=== PATIENT | female | born 1970 ===

== ENCOUNTER 2018-04-09 10:41 | Emergency (ER) | payer OTHER ==
[2018-04-09 10:41] VITALS: BMI 30.8
[2018-04-09 11:13] VITALS: O2SAT 100
--- NOTE | 2018-04-09 11:18 | ED PDOC ---
HPI: General Adult Time Seen by Provider: 04/09/18 10:48 Chief Complaint (Nursing): Female Genitourinary Chief Complaint (Provider): RLQ pain History Per: Patient History/Exam Limitations: no limitations Onset/Duration Of Symptoms: Other (x 1 year) Current Symptoms Are (Timing): Intermittent Episodes Additional Complaint(s): 47-year-old female presents to emergency department with intermittent sharp right lower quadrant pain x 1 year associated with dysuria. No nausea/vomiting/diarrhea. No Fever. LMP 2 weeks ago PMD: [facility] Past Medical History Reviewed: Historical Data, Nursing Documentation, Vital Signs Vital Signs: Last Vital Signs Temp 98.6 F 04/09/18 17:48 Pulse 66 04/09/18 17:48 Resp 16 04/09/18 17:48 BP 137/77 04/09/18 17:48 Pulse Ox 100 04/09/18 17:48 - Medical History PMH: No Chronic Diseases - Surgical History Surgical History: No Surg Hx - Family History Family History: States: Unknown Family Hx - Allergies Allergies/Adverse Reactions: Allergies Allergy/AdvReac Type Severity Reaction Status Date / Time No Known Allergies Allergy Verified 04/09/18 11:07 Review of Systems ROS Statement: Except As Marked, All Systems Reviewed And Found Negative Constitutional: Negative for: Fever Gastrointestinal: Positive for: Abdominal Pain (RLQ). Negative for: Nausea, Vomiting, Diarrhea Genitourinary Female: Positive for: Dysuria Physical Exam - Reviewed Nursing Documentation Reviewed: Yes Vital Signs Reviewed: Yes - Physical Exam Gastrointestinal/Abdominal: Positive for: Soft, Tenderness (Minimally RLQ tenderness). Negative for: Guarding, Rebound Back: Positive for: Normal Inspection. Negative for: L CVA Tenderness, R CVA Tenderness - Laboratory Results Result Diagrams: 04/09/18 11:30 04/09/18 11:30 Urine POC: Negative - ECG O2 Sat by Pulse Oximetry: 100 (RA) Pulse Ox Interpretation: Normal Medical Decision Making Medical Decision Making: Time: 11:13 Plan: - CMP - ED Urine - CBC (with differential) - Pelvis/Transvaginal Ultrasound (-) Urine Patient to be transferred to Dr. Chan at 15:00, pending ultrasound. Scribe Attestation: Documented by Lewis Breaux, acting as a scribe for Shadi Francis MD Provider Scribe Attestation: All medical record entries made by the Scribe were at my direction and personally dictated by me. I have reviewed the chart and agree that the record accurately reflects my personal performance of the history, physical exam, medical decision making, and the department course for this patient. I have also personally directed, reviewed, and agree with the discharge instructions and disposition. Disposition - Clinical Impression Clinical Impression: Pelvic pain - Patient ED Disposition Is Patient to be Admitted: Transfer of Care - Disposition Referrals: [facility] [Outside] [facility] [Outside] [facility] [Outside] Disposition: Transfer of Care Disposition Time: 15:00 Condition: STABLE Instructions: Chronic Pelvic Pain in Women Forms: [employer] (Turkish) Print Language: GEORGIAN Patient Signed Over To: Tana Chan (pending ultrasound)
[2018-04-09 11:42] LABS: BASO # 0.1 K/uL (0.0-0.2); BASO % 1.3 % (0.0-2.0); EOS # 0.3 K/uL (0.0-0.7); EOS % 3.5 % (0.0-4.0); HEMOGLOBIN 12.4 g/dL (12.0-16.0); LYMPH % 32.1 % (20.0-40.0); MEAN CELL VOLUME 79.3 fl (81.0-99.0); MEAN CORPUSCULAR HGB CONC 32.8 g/dL (33.0-37.0); MEAN PLATELET VOLUME 8.1 fl (7.2-11.7); MONO # 0.7 K/uL (0.0-0.8); MONO % 7.9 % (0.0-10.0); NEUT # 5.2 K/uL (1.8-7.0); NEUT % 55.2 % (50.0-75.0); RBC 4.76 Mil/uL (3.80-5.20); RED CELL DISTRIBUTION WIDTH 15.1 % (11.5-14.5); WHITE BLOOD COUNT 9.4 K/uL (4.8-10.8)
[2018-04-09 12:17] LABS: BLOOD UREA NITROGEN 17 mg/dl (7-17); CALCIUM 9.4 mg/dL (8.4-10.2); GFR NON-AFRICAN AMERICAN > 60
[2018-04-09 12:18] LABS: ALB/GLOB RATIO 1.2 (1.0-2.1); ALT/SGPT 18 U/L (9-52); AST/SGOT 24 U/L (14-36)
[2018-04-09] MEDS ORDERED: Naproxen 500 MG TAB PO ONE (13:36)
--- NOTE | 2018-04-09 15:11 | ED PDOC ---
- Laboratory Results Result Diagrams: 04/09/18 11:30 04/09/18 11:30 Urine POC: Negative - ECG O2 Sat by Pulse Oximetry: 100 (RA) Pulse Ox Interpretation: Normal Medical Decision Making Medical Decision Making: Patient transferred to vt by Dr. Francis at 15:00, pending ultrasound. Time: 15:21 Pelvis/Transvaginal Ultrasound FINDINGS: UTERUS: Measures 4.6 x 5.9 x 9.7 cm. Normal in size and appearance. No fibroid or other mass lesion seen. ENDOMETRIUM: Measures 10.2 mm in diameter. No ultrasound findings to suggest gestational sac , fluid, debris, mass or polyp or other pathologic process within the endometrium. CERVIX: No cervical abnormality identified.Incidental finding: Nabothian cysts the largest measures 10 mm. RIGHT OVARY: Not visible. LEFT OVARY: Measures 2.4 x 2.7 x 3.1 cm. No solid mass. Normal flow. Simple cyst 1.4 x 1.5 cm. FREE FLUID: No significant free fluid noted. OTHER FINDINGS: None. IMPRESSION: No significant or acute findings to account for/ related to the clinical presentation. Additional benign and/or incidental findings described above. Scribe Attestation: Documented by Lewis Breaux, acting as a scribe for Tana Chan MD. Provider Scribe Attestation: All medical record entries made by the Scribe were at my direction and personally dictated by me. I have reviewed the chart and agree that the record accurately reflects my personal performance of the history, physical exam, medical decision making, and the department course for this patient. I have also personally directed, reviewed, and agree with the discharge instructions and disposition. Disposition Doctor Will See Patient In The: Office Counseled Patient/Family Regarding: Diagnosis, Need For Followup - Clinical Impression Clinical Impression: Pelvic pain - POA Present On Arrival: None - Disposition Disposition: Routine/Home Disposition Time: 17:00 Condition: STABLE Instructions: Chronic Pelvic Pain in Women Forms: [employer] (Chadian) Print Language: HEBREW
--- NOTE | 2018-04-09 15:22 | US ---
Date of service: 04/09/2018 HISTORY: Right-sided pelvic pain. LMP 03/25/2018. History of irregular cycles. COMPARISON: None available. TECHNIQUE: Transabdominal, transvaginal. Real -time technique with 2D, duplex and color Doppler. FINDINGS: UTERUS: Measures 4.6 x 5.9 x 9.7 cm. Normal in size and appearance. No fibroid or other mass lesion seen. ENDOMETRIUM: Measures 10.2 mm in diameter. No ultrasound findings to suggest gestational sac, fluid, debris, mass or polyp or other pathologic process within the endometrium. CERVIX: No cervical abnormality identified.Incidental finding: Nabothian cysts the largest measures 10 mm. RIGHT OVARY: Not visible. LEFT OVARY: Measures 2.4 x 2.7 x 3.1 cm. No solid mass. Normal flow. Simple cyst 1.4 x 1.5 cm. FREE FLUID: No significant free fluid noted. OTHER FINDINGS: None. IMPRESSION: No significant or acute findings to account for/ related to the clinical presentation. Additional benign and/or incidental findings described above.
[2018-04-09 17:44] VITALS: BP 137/77; PULSE 66; RESP 16; TEMP 98.6
== END 2018-04-09 17:50 | disposition home or self-care (01) ==
LOC: H.ER 10:41
DX: R10.2 Pelvic and perineal pain (principal)

== ENCOUNTER 2019-02-08 19:49 | Emergency (ER) | payer SELFPAY ==
[2019-02-08 19:49] VITALS: BMI 30.8
[2019-02-08 20:18] VITALS: RESP 16; TEMP 98
[2019-02-08] MEDS ORDERED: Sodium Chloride 0.9% 1,000 ML IV STA (21:51)
--- NOTE | 2019-02-08 21:55 | ED PDOC ---
HPI: Headache Time Seen by Provider: 02/08/19 21:08 Chief Complaint (Nursing): Headache Chief Complaint (Provider): headache History Per: Patient, G[employer] Farmer (Jensensaulonatasha #[id number]) History/Exam Limitations: no limitations Onset/Duration Of Symptoms: Days (4) Current Symptoms Are (Timing): Still Present Quality: "Pain" Additional Complaint(s): 48 y/o female presents for evaluation of left-sided headache x 4 days. Patient states headache worse with heavy lifting and movement of head. Denies fever, dizziness, extremity numbness/weakness, vision changes, nausea/vomiting, chest pain, shortness of breath, palpitations, abdominal pain. Tylenol last taken yesterday morning Past Medical History Reviewed: Historical Data, Nursing Documentation, Vital Signs Vital Signs: Last Vital Signs Temp 98 F 02/08/19 20:17 Pulse 76 02/08/19 20:17 Resp 16 02/08/19 20:17 BP 117/77 02/08/19 20:17 Pulse Ox 99 02/08/19 20:17 Primary Care Provider: FAMILY PROVIDER,NO - Medical History PMH: Diabetes, Hyperlipidemia - Surgical History Surgical History: - Family History Family History: States: Unknown Family Hx - Living Arrangements Living Arrangements: With Family - Home Medications Home Medications: Ambulatory Orders Medication Instructions Recorded Naproxen [Naprosyn] 500 mg PO Q12 PRN #20 tablet 02/09/19 - Allergies Allergies/Adverse Reactions: Allergies Allergy/AdvReac Type Severity Reaction Status Date / Time No Known Allergies Allergy Verified 02/08/19 20:15 Review of Systems ROS Statement: Except As Marked, All Systems Reviewed And Found Negative Neurological: Positive for: Headache Physical Exam - Reviewed Nursing Documentation Reviewed: Yes Vital Signs Reviewed: Yes - Physical Exam Appears: Positive for: Well, Non-toxic, No Acute Distress Head Exam: Positive for: ATRAUMATIC, NORMAL INSPECTION, NORMOCEPHALIC Skin: Positive for: Normal Color Eye Exam: Positive for: Normal appearance, EOMI, PERRL ENT: Positive for: Normal ENT Inspection Cardiovascular/Chest: Positive for: Regular Rate, Rhythm Respiratory: Positive for: Normal Breath Sounds Gastrointestinal/Abdominal: Positive for: Normal Exam Back: Positive for: Normal Inspection Extremity: Positive for: Normal ROM Neurological/Psych: Positive for: Awake, Alert, Oriented (x3) - Laboratory Results Result Diagrams: 02/09/19 00:11 02/09/19 00:11 - ECG O2 Sat by Pulse Oximetry: 99 - Progress ED Course And Treament: -accucheck -cbc -cmp -upreg -udip -CT head -IV NS bolus -PO tylenol -IV toradol EXAM: CT Head Without IV contrast. CLINICAL HISTORY: Headache TECHNIQUE: Axial computed tomography images of the head/brain without intravenous contrast. COMPARISON: None provided. FINDINGS: BRAIN: No acute intraparenchymal hemorrhage. No mass lesion. No CT evidence for acute territorial infarct. No midline shift or extra-axial collections. VENTRICLES: No hydrocephalus. ORBITS: The orbits are unremarkable. SINUSES AND MASTOIDS: The paranasal sinuses and mastoid air cells are clear. BONES: No fracture. SOFT TISSUES: Unremarkable. IMPRESSION: No acute intracranial abnormality. 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), discharged with rx Naproxen Encouraged increase oral hydration Follow up PMD within 2-3 days Return precautions given Disposition - Clinical Impression Clinical Impression: Headache, Dehydration - Patient ED Disposition Is Patient to be Admitted: No Counseled Patient/Family Regarding: Studies Performed, Diagnosis, Need For Followup, Rx Given - Disposition Disposition: Routine/Home Disposition Time: 02:05 Condition: IMPROVED Prescriptions: Naproxen [Naprosyn] 500 mg PO Q12 PRN #20 tablet PRN Reason: Pain, Moderate (4-7) Instructions: Headache, Adult, Dehydration, Adult (DC) Forms: [facility] ED School/Work Excuse Print Language: INDONESIAN
[2019-02-09 00:15] LABS: BASO % 0.4 % (0.0-2.0); EOS # 0.4 K/uL (0.0-0.7); EOS % 5.7 % (0.0-4.0); HEMOGLOBIN 13.3 g/dL (12.0-16.0); MEAN CELL VOLUME 81.4 fl (81.0-99.0); MEAN CORPUSCULAR HEMOGLOBIN 26.4 pg (27.0-31.0); MEAN CORPUSCULAR HGB CONC 32.5 g/dL (33.0-37.0); MEAN PLATELET VOLUME 8.3 fl (7.2-11.7); MONO # 0.6 K/uL (0.0-0.8); MONO % 7.8 % (0.0-10.0); NEUT # 3.5 K/uL (1.8-7.0); NEUT % 46.1 % (50.0-75.0); NRBC % 0.1 % (0.0-0.0); RBC 5.03 Mil/uL (3.80-5.20); RED CELL DISTRIBUTION WIDTH 15.6 % (11.5-14.5); WHITE BLOOD COUNT 7.6 K/uL (4.8-10.8)
[2019-02-09 00:23] LABS: ALB/GLOB RATIO 1.2 (1.0-2.1); ALBUMIN 4.2 g/dL (3.5-5.0); ALT/SGPT 24 U/L (9-52); AST/SGOT 29 U/L (14-36); BLOOD UREA NITROGEN 29 mg/dl (7-17); GFR NON-AFRICAN AMERICAN > 60
[2019-02-09 02:34] VITALS: BP 135/76; PULSE 71; O2SAT 100
--- NOTE | 2019-02-09 09:59 | CT ---
Date of service: 02/08/2019 PROCEDURE: CT HEAD WITHOUT CONTRAST. HISTORY: headache COMPARISON: None available. TECHNIQUE: Axial computed tomography images were obtained through the head/brain without intravenous contrast. Radiation dose: Total exam DLP = 797.93 mGy-cm. This CT exam was performed using one or more of the following dose reduction techniques: Automated exposure control, adjustment of the mA and/or kV according to patient size, and/or use of iterative reconstruction technique. FINDINGS: HEMORRHAGE: No intracranial hemorrhage. BRAIN: No mass effect or edema. No atrophy or chronic microvascular ischemic changes. VENTRICLES: Unremarkable. No hydrocephalus. CALVARIUM: Unremarkable. PARANASAL SINUSES: Unremarkable as visualized. No significant inflammatory changes. MASTOID AIR CELLS: Unremarkable as visualized. No inflammatory changes. OTHER FINDINGS: None. IMPRESSION: Normal CT of the Head. Concordant results (preliminary interpretation) provided by [facility].
== END 2019-02-09 02:38 | disposition home or self-care (01) ==
LOC: H.ER 19:49
DX: R51 Headache (principal); E86.0 Dehydration; E11.9 Type 2 diabetes mellitus without complications; E78.5 Hyperlipidemia, unspecified
CPT/HCPCS: 70450; 80053; 81025; 82948; 85025; 99285; J1885; J7030